=== PATIENT | female | born 1955 | race Caucasian/White ===

== ENCOUNTER 2023-02-21 11:31 | Emergency (ER) | payer MEDICARE, MEDICAID ==
[~2023-02-21] VITALS: Ht 172.7 cm; Wt 102.3 kg
[2023-02-21 11:52] VITALS: TEMP 97.3
[2023-02-21] MEDS ORDERED: morphine 10mg/ml inj. IM ONE (13:40)
[2023-02-21 14:09] VITALS: BP 128/41; PULSE 62; RESP 15; O2SAT 95
[2023-02-21] MEDS ORDERED: HYDROmorphone 1 mg/ml syringe SQ ONE (14:20)
[2023-02-21] MEDS ORDERED: magnesium hydroxide 30ml (MOM) UD suspension PO ONE (14:25)
[2023-02-21] MEDS ORDERED: POLY119P2 PO (14:27)
[2023-02-21] MEDS ORDERED: DOCU-148 PO (14:27)
[2023-02-21] MEDS ORDERED: BISA10SU11 RC (14:27)
[2023-02-21] MEDS ORDERED: MAGN400O6 PO (14:29)
--- NOTE | 2023-02-21 15:02 | NUR ---
Per ZACHARY Gramajo okay to give Dilaudid IM instead of SC
== END 2023-02-21 15:37 | disposition home or self-care (01) ==
LOC: ER 11:31
DX: G89.18 Other acute postprocedural pain (principal); M25.561 Pain in right knee
CPT/HCPCS: 93971; 96372; 99285; J1170